=== PATIENT | male | born 1985 | race Hispanic/Latino ===

== ENCOUNTER 2020-03-29 06:23 | Emergency (ER) | payer SELFPAY ==
[~2020-03-29] VITALS: Ht 165.1 cm; Wt 76.2 kg
[2020-03-29] MEDS ORDERED: NAPROXEN 250 MG TAB PO SCH (07:15)
--- NOTE | 2020-03-29 08:48 | Diagnostic Imaging Report ---
Radiographs of the lumbar spine 5 views with bilateral obliques HISTORY: Pain COMPARISON: None available. FINDINGS: Bones: No acute displaced fracture. Osseous alignment is within normal limits. Joints: Scattered degenerative change. No osseous erosion. No pars interarticularis defects. Soft tissues: The soft tissues appear unremarkable. IMPRESSION: Scattered degenerative change. No osseous erosion. No pars interarticularis defects. Signed by: Dr. Keyon Abreu M.D. on 03/29/2020 8:45 AM
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
[2020-03-29] MEDS ORDERED: ROBAXIN-750750 MG PO (08:59)
[2020-03-29] MEDS ORDERED: NAPROXEN250 MG PO (08:59)
--- NOTE | 2020-03-29 12:12 | NUR ---
Wang MINER cared for an took report, and discharged pt.
== END 2020-03-29 09:38 | disposition home or self-care (01) ==
LOC: ER 07:30
DX: M54.5 Low back pain (principal); V43.52XA Car driver injured in collision with other type car in traffic accident, initial encounter; Y92.488 Other paved roadways as the place of occurrence of the external cause
CPT/HCPCS: 72110; 99283